=== PATIENT | female | born 1980 | race Caucasian/White ===

== ENCOUNTER 2021-01-22 20:44 | Emergency (ER) | payer MEDICARE, OTHER ==
[~2021-01-22] VITALS: Ht 165.1 cm; Wt 104.3 kg
== END 2021-01-23 01:08 | disposition home or self-care (01) ==
LOC: ER 20:44
DX: G43.909 Migraine, unspecified, not intractable, without status migrainosus (principal); Z88.8 Allergy status to other drugs, medicaments and biological substances
CPT/HCPCS: 96361; 96374; 96375; 99283-25; A9270; J0780; J1200; J1885; J2405; J7030